=== PATIENT | female | born 1995 | race Caucasian/White ===

== ENCOUNTER 2020-07-27 15:14 | Outpatient (REF) | payer OTHER, SELFPAY | END 2020-07-27 15:15 | disposition home or self-care (01) | LOC: HO.LAB 15:14 | PROVIDERS: PCP Internal Medicine; Visit Provider Internal Medicine | DX: Z20.828 Contact with and (suspected) exposure to other viral communicable diseases (principal) | CPT/HCPCS: C9803; U0003 ==

== ENCOUNTER 2020-09-13 15:47 | Outpatient (REF) | payer OTHER, SELFPAY | END 2020-09-13 15:48 | disposition home or self-care (01) | LOC: HO.LAB 15:47 | PROVIDERS: Visit Provider Internal Medicine | DX: Z20.828 Contact with and (suspected) exposure to other viral communicable diseases (principal) | CPT/HCPCS: 36415; C9803; U0003 ==

== ENCOUNTER 2024-10-25 04:01 | Emergency (ER) | payer OTHER, SELFPAY ==
[2024-10-25 04:05] VITALS: BP 123/75; PULSE 76; RESP 16; TEMP 37; O2SAT 98; BMI 33.1
--- OUTSIDE RECORDS SUMMARY | 2024-10-25 04:28 | XMS_ITS | Encounter Summary ---
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 Name Role Phone Unavailable Primary Care Provider Unavailabl e Encounter Details Date Type Department Care Team (Latest Contact Info) Description 07/29/2019 Abstract [facility] Dental, Provider, DDS Social History Tobacco Use Types Packs/Day Years Used Date Smoking Tobacco: Never Assessed Comments Unknown Sex and Gender Information Value Date Recorded Sex Assigned at Female 07/08/2022 10:36 AM EDT Legal Sex Female 10:36 AM EDT Gender Identity Female 07/08/2022 10:36 AM EDT Sexual Orientation Bisexual 07/08/2022 10 :36 AM EDT documented as of this encounter Plan of Treatment Not on file documented as of this encounter Visit Diagnoses Not on filedocumented in this encounter
[2024-10-25 04:53] LABS: Basophils Absolute Auto 0.1 X10*3/uL (0.0-0.2); Basophils Percent Auto 0.4 % (0-2); Eosinophils Absolute Auto 0.1 X10*3/uL (0.0-0.4); Eosinophils Percent Auto 0.9 % (0-4); Hematocrit 42.1 % (37.0-47.0); Hemoglobin 14.8 g/dl (12.0-16.0); Imm Gran Abs Auto 0.07 X10*3/uL (0.00-0.03); Imm Gran Pct Auto 0.4 % (0.0-0.4); Lymphocytes Absolute Auto 0.8 X10*3/uL (1.2-4.9); Lymphocytes Percent Auto 4.7 % (20-40); MANUAL DIFF FLAG NO; Mean Corpuscular HGB Conc 35.2 g/dl (31.0-35.0); Mean Corpuscular Hemoglobin 32.3 pg (27.0-33.0); Mean Corpuscular Volume 91.9 fL (80.0-98.0); Monocytes Absolute Auto 0.7 X10*3/uL (0.1-1.2); Monocytes Percent Auto 4.2 % (2-11); Neutrophils Absolute Auto 14.4 x10*3/uL (2.0-8.3); Neutrophils Percent Auto 89.4 % (45-73); Platelet Count 248 X10*3/uL (160-400); Red Blood Count 4.58 X10*6/uL (4.20-5.50); Red Cell Distribution Width 12.3 % (11.0-16.0); White Blood Count 16.1 X10*3/uL (4.8-10.8)
--- NOTE | 2024-10-25 05:05 | ED_ITS ---
HPI - Abdominal Pain General Chief Complaint: Abdominal Pain Stated Complaint: Food poisoning Time Seen by Provider: 10/25/24 05:05 Source: patient Mode of arrival: ambulatory Limitations: no limitations History of Present Illness ED Provider: HPI narrative: Patient apparently had steak sandwich at lunch time and [employer] food at the dinner within 1 hour of having the [employer] food patient's started having nausea vomiting and diarrhea with stomach upset vomited about 10 -12 times and had same number of watery diarrhea having some chills no fever no other family members sick Related Data Previous Rx's ?Medication ?Instructions ?Recorded loperamide 2 mg tablet (Imodium 2 mg PO Q6H PRN loose stool #14 10/25/24 A-D) tabs ondansetron 4 mg disintegrating 4 mg PO Q6-8H PRN nausea and 10/25/24 tablet vomiting #10 tabs Allergies Allergy/AdvReac Type Severity Reaction Status Date / Time tioconazole Allergy Unknown SWELLING Verified 10/25/24 04:07 [From MONISTAT 1 (TIOCONAZOLE)] Review of Systems Review of Systems Yes all other systems are reviewed and are negative [facility] Social History Social History Smoked in Last 30 Days: No Use of substances other than those prescribed or required for medical reasons: No Advance Directives: No Advance Directives Information Provided: Yes Do you have a plan to hurt others: No Plan Patient : No Physical Exam ED Vital Signs: Vital Signs - 24 hr 10/25/24 04:05 10/25/24 06:49 Temperature 98.6 F 98.2 F Pulse Rate 76 83 Respiratory Rate 16 16 Blood Pressure 123/75 120/66 Pulse Oximetry 98 95 Oxygen Delivery Method Room Air Room Air BMI result Body Mass Index 33.1 Appearance: Alert. Oriented X3. No acute distress. Actively vomiting Eyes: No pallor or icterus ENT: Pharynx normal. Oral Mucosa moist Neck: Normal inspection. Neck supple. CVS: Normal heart rate and rhythm. Pulses normal. Respiratory: No respiratory distress. Equal air entry bilateral, no wheezing/rales/rhonchi Abdomen: Soft and nontender. Bowel sounds are present, no mass palpable, no CVA tenderness Skin: Skin warm and dry. Normal skin color. Normal skin turgor. Extremities: No lower extremity edema. No calf tenderness Neuro: Oriented X 3. No motor deficit. Medical Decision Making Medical Decision Making [facility] Narrative: Patient with gastroenteritis likely from the food feeling much better after IV fluids and Zofran and Imodium taking p.o. fluids in the ER will discharge patient home on supportive treatment abdomen soft nontender Lab Data [facility] Lab Attestation statement: I reviewed the patient's lab results. 10/25/24 04:34 10/25/24 04:34 Labs: Lab Results 10/25/24 Range/Units 04:34 WBC 16.1 H (4.8-10.8) X10*3/uL RBC 4.58 (4.20-5.50) X10*6/uL Hgb 14.8 (12.0-16.0) g/dl Hct 42.1 (37.0-47.0) % MCV 91.9 (80.0-98.0) fL MCH 32.3 (27.0-33.0) pg MCHC 35.2 H (31.0-35.0) g/dl RDW 12.3 (11.0-16.0) % Plt Count 248 (160-400) X10*3/uL MPV 10.0 (9.4-12.3) fL Immature Gran % (Auto) 0.4 (0.0-0.4) % Neut % (Auto) 89.4 H (45-73) % Lymph % (Auto) 4.7 L (20-40) % [place] % (Auto) 4.2 (2-11) % Eos % (Auto) 0.9 (0-4) % Baso % (Auto) 0.4 (0-2) % Lymph # (Auto) 0.8 L (1.2-4.9) X10*3/uL [place] # (Auto) 0.7 (0.1-1.2) X10*3/uL Eos # (Auto) 0.1 (0.0-0.4) X10*3/uL Baso # (Auto) 0.1 (0.0-0.2) X10*3/uL Abs Immat Gran (auto) 0.07 H (0.00-0.03) X10*3/uL Absolute Neuts (auto) 14.4 H (2.0-8.3) x10*3/uL Absolute Nucleated RBC 0.000 (0.0-0.012) X10*3/uL Nucleated RBC % (auto) 0.0 (0.0-0.2) /100WBC Sodium 140 (135-145) mmol/L Potassium 4.0 (3.3-5.1) mmol/L Chloride 107 (96-108) mmol/L Carbon Dioxide 19 L (22-29) mmol/L Anion Gap 18 (12-20) BUN 9 (9-16) mg/dL Creatinine 0.71 (0.5-1.4) mg/dL Estim Creat Clear Calc 113.5 Estimated GFR > 60 Random Glucose 110 (60-115) mg/dL Calcium 9.9 (8.4-10.2) mg/dL Total Bilirubin 0.6 (0.0-1.0) mg/dL Direct Bilirubin 0.2 (0.0-0.5) mg/dL AST 28 (5-31) U/L ALT 32 H (0-31) U/L Alkaline Phosphatase 53 (39-117) U/L Total Protein 8.5 H (6.5-8.0) g/dL Albumin 5.0 (3.5-5.0) g/dL Beta HCG, Quant < 2 mIU/mL Medications Administered Discontinued Medications Generic Name Dose Route Start Last Admin Trade Name Freq PRN Reason Stop Dose Admin Sodium Chloride 1,000 mls @ 999 mls/hr 10/25/24 05:32 10/25/24 05:39 Ns IV 10/25/24 06:32 999 mls/hr .Q1H1M ONE Administration Loperamide HCl 2 mg 10/25/24 05:32 10/25/24 05:38 Loperamide Hcl 2 Mg Capsule PO 10/25/24 05:33 2 mg ONCE ONE Administration Ondansetron HCl 4 mg 10/25/24 05:32 10/25/24 05:38 Ondansetron Hcl 4 Mg/2 Ml Vial IVPUSH 10/25/24 05:33 4 mg ONCE ONE Administration Discharge Plan Discharge Clinical Impression: Gastroenteritis Patient Disposition: Home, Self-Care Instructions: Gastroenteritis (ED) Additional Instructions: Drink plenty of fluids Medicine for nausea vomiting and diarrhea as prescribed Prescriptions: New ondansetron 4 mg tablet,disintegrating 4 mg PO Q6-8H PRN (Reason: nausea and vomiting) Qty: 10 0RF loperamide [Imodium A-D] 2 mg tablet 2 mg PO Q6H PRN (Reason: loose stool) Qty: 14 0RF Stand Alone Forms: Work/School Release Print Language: Chinese
[2024-10-25 05:13] LABS: Alanine Aminotransferase 32 U/L (0-31); Alkaline Phosphatase 53 U/L (39-117); Anion Gap 18 (12-20); Aspartate Amino Transferase 28 U/L (5-31); Bilirubin Direct 0.2 mg/dL (0.0-0.5); Bilirubin Total 0.6 mg/dL (0.0-1.0); Blood Urea Nitrogen 9 mg/dL (9-16); Calcium 9.9 mg/dL (8.4-10.2); Carbon Dioxide 19 mmol/L (22-29); Chloride 107 mmol/L (96-108); Creatinine Clr Calc Pharmacy 113.5; Estimated Glomerular Filt Rate > 60; Glucose Random 110 mg/dL (60-115); Sodium 140 mmol/L (135-145); Total Protein 8.5 g/dL (6.5-8.0)
[2024-10-25 05:14] LABS: HCG Quantitative < 2 mIU/mL
[2024-10-25] MEDS: ondansetron HCL 4 MG/2 ML VIAL IVPUSH (05:38)
[2024-10-25] MEDS: Loperamide HCl 2 MG CAPSULE PO (05:38)
[2024-10-25] MEDS: 0.9 % Sodium Chloride 1,000 ML 999 ML IV (05:39)
--- NOTE | 2024-10-25 06:27 | PC.NURSE ---
pt a&ox4, respirations even and unlabored. pt reports around 930pm she ate filipino food and since she has had nausea, vomiting and diarrhea. pt immediately in bathroom with diarrhea upon arrival to ed bed. pt noted to be vomiting large amounts. pt denies abd pain. 20G placed in left ac, pt medicated per nov, fluid bolus administered.
[2024-10-25 06:49] VITALS: BP 120/66; PULSE 83; RESP 16; TEMP 36.8; O2SAT 95
[2024-10-25 07:04] VITALS: BP 120/66; PULSE 83; RESP 16; TEMP 36.8; O2SAT 95
== END 2024-10-25 07:05 | disposition home or self-care (01) ==
PROVIDERS: Emergency Provider Internal Medicine; PCP Internal Medicine
DX: K52.9 Noninfective gastroenteritis and colitis, unspecified (principal); A05.9 Bacterial foodborne intoxication, unspecified; R11.2 Nausea with vomiting, unspecified; R10.2 Pelvic and perineal pain; Z79.899 Other long term (current) drug therapy
CPT/HCPCS: 36415; 80053; 82248; 84702; 85025; 96374; 99284; 99285; J2405